=== PATIENT | male | born 1965 | race Caucasian/White ===

== ENCOUNTER 2016-08-18 08:18 | Emergency (ER) | payer OTHER, MEDICAID ==
[2016-08-18 08:30] VITALS: TEMP 98.2
--- NOTE | 2016-08-18 08:51 | EDPHY ---
H & P Stated Complaint: Suprapubic cath replacment Time Seen by Provider: 08/18/16 08:46 HPI/ROS: CHIEF COMPLAINT: Suprapubic catheter replacement. HISTORY OF PRESENT ILLNESS: The patient is a 51-year-old male with a history of quadriplegia who [facility]rapubic [facility]. He has no other complaints at this time. No urinary symptoms or fever. REVIEW OF SYSTEMS: A 10 point review of systems was performed and is negative with the exception of the elements mentioned in the history of present illness. Source: Patient Exam Limitations: No limitations - Personal History Current Tetanus/Diphtheria Vaccine: Yes Current Tetanus Diphtheria and Acellular Pertussis (TDAP): Yes Tetanus Vaccine Date: unknown date - Medical/Surgical History Hx Asthma: No Hx Chronic Respiratory Disease: No Hx Diabetes: No Hx Cardiac Disease: No Hx Renal Disease: No Hx Cirrhosis: No Hx Alcoholism: No Hx HIV/AIDS: No Hx Splenectomy or Spleen Trauma: No Other PMH: Quadriplegia. Suprapubic catheter - Social History Smoking Status: Never smoked Alcohol Use: None Additional [place] History[place]. - Physical Exam Exam: General Appearance: Alert, no acute distress. Focused physical examination performed. Triage BP 144/103. Respiratory: Lungs are clear to auscultation anteriorly; no wheezes, rales, or rhonchi. Cardiovascular: Regular rate and rhythm; no murmur, rub, or gallop. Gastrointestinal: Abdomen is soft and nontender, no masses or organomegaly, bowel sounds normal. Catheter site without purulent drainage or erythema. Catheter is draining. Skin: Warm and dry, no rashes, normal color. Extremities: No lower extremity edema, no calf tenderness or swelling. Contracture of all 4 extremities. Neurological: Alert. . Constitutional: Initial Vital Signs Temperature (C) 36.8 C 08/18/16 08:24 Heart Rate 85 08/18/16 08:24 Respiratory Rate 16 08/18/16 08:24 Blood Pressure 144/103 H 08/18/16 08:24 O2 Sat (%) 95 08/18/16 08:24 O2 Delivery Mode Room Air Allergies/Adverse Reactions: No Known Allergies Allergy (Unverified 04/09/12 14:36) Home Medications: Medication Instructions Recorded Baclofen [Baclofen 20 mg (RX)] 20 mg PO TID 01/02/12 Docusate Sodium [Colace 100 MG 100 mg PO BID 01/02/12 (OTC)] Famotidine [Pepcid 20 MG (OTC)] 20 mg PO BID 01/02/12 Metoprolol Tartrate [Lopressor 25 25 mg PO BID 01/02/12 mg (RX)] OLANZapine DISINTEGR [ZyPREXA 5 mg PO HS 01/02/12 ZYDIS 5 mg (RX)] Oxybutynin Chloride [Ditropan 5mg 5 mg PO BID 01/02/12 (RX)] Simvastatin [Zocor 20 mg (RX)] 20 mg PO DAILY18 01/02/12 Thiamine HCl [Vitamin B-1 100mg 100 mg PO DAILY8 01/02/12 (OTC)] Venlafaxine Xr [Effexor Xr 37.5MG 37.5 mg PO BID 01/02/12 (RX)] Diltiazem Cd [Cardizem ER 120 MG 120 mg PO DAILY 04/09/12 (RX)] Multivitamins [Multivitamin (OTC)] 1 each PO DAILY 04/09/12 Pharmacy Completed 04/09/1204/09/12 Reconciled 04/09/12 Reconciled 04/09/12 Warfarin Sodium [Coumadin 5MG (RX)] 5 mg PO TU 04/09/12 Warfarin Sodium [Coumadin 7.5MG 7.5 mg PO SUMOWETHFRSA 04/09/12 (RX)] Medical Decision Making ED Course/Re-evaluation: 51-year-old quadriplegic male presents from [facility] to have his suprapubic catheter replaced. He has no other medical complaints. I do not suspect infection. The nurse has replaced the catheter and he is safe for discharge. EMS has been notified. Departure - Departure Disposition: Home, Routine, Self-Care Clinical Impression: Encounter for suprapubic catheter care Condition: Good Instructions: How to Care for Your Suprapubic Catheter (ED) Additional Instructions: Return for any serious worsening of condition. Referrals: Martín Mata DO [Doctor of Osteopathy] - Follow Up Only If Needed (On-call primary care provider. ) Report Scribed for: Shadia Mcnamara Report Scribed by: Ricardo Butler Date of Report: 08/18/16 Time of Report: 08:50 Physician Review and Approval Statement: 08/18/16 09:00 Portions of this note were transcribed by the medical coding specialist. I, Dr. Shadia Mcnamara, personally performed the history, physical exam, and medical decision- making; and confirmed the accuracy of the information in the transcribed note.
[2016-08-18 10:12] VITALS: BP 136/102; PULSE 78; RESP 18; O2SAT 96
== END 2016-08-18 10:09 | disposition home or self-care (01) ==
LOC: EDUNIT#
PROC: 0T9B70Z Drainage of Bladder with Drainage Device, Via Natural or Artificial Opening (ICD-10-PCS; principal; 2016-08-18)
DX: Z46.6 Encounter for fitting and adjustment of urinary device (principal); Z79.01 Long term (current) use of anticoagulants

== ENCOUNTER 2017-06-06 09:09 | Day surgery (SDC) | payer OTHER, MEDICAID ==
[2017-06-06] MEDS ORDERED: LR 1,000 ML IV ONE (09:42)
[2017-06-06] MEDS ORDERED: LIDOCAINE 1% 2 ML INJ ID PRN (09:42)
[2017-06-06 10:33] LABS: PLATELET COUNT 257 10^3/uL (150-400)
--- NOTE | 2017-06-06 10:44 | PDANEPAE ---
ANE History of Present Illness melena ANE Past Medical History - Cardiovascular History Hx Hypertension: Yes Hx Arrhythmias: No Hx Chest Pain: No Hx Coronary Artery / Peripheral Vascular Disease: No Hx CHF / Valvular Disease: No Hx Palpitations: No - Pulmonary History Hx COPD: No Hx Asthma/Reactive Airway Disease: No Hx Recent Upper Respiratory Infection: No Hx Oxygen in Use at Home: No Hx Sleep Apnea: No Sleep Apnea Screening Result - Last Documented: Positive - Neurologic History Hx Cerebrovascular Accident: Yes Hx Seizures: No Hx Dementia: No Neurologic History Comment: deficit on right hand - Endocrine History Hx Diabetes: No - Renal History Hx Renal Disorders: No - Liver History Hx Hepatic Disorders: No - Neurological & Psychiatric Hx Hx Neurological and Psychiatric Disorders: Yes Neurological / Psychiatric History Comment: cerebal palsey, on zyprexa - Cancer History Hx Cancer: No - Congenital Disorder History Hx Congenital Disorders: No - GI History Hx Gastrointestinal Disorders: Yes Gastrointestinal History Comment: melena,IBS,gerd - Other Health History Other Health History: skin has wound left thigh. front teeth missing - Chronic Pain History Chronic Pain: No - Surgical History Prior Surgeries: none ANE Review of Systems Review of Systems: - Exercise capacity METS (RN): 1 METS ANE Patient History - Allergies Allergies/Adverse Reactions: No Known Allergies Allergy (Unverified 04/09/12 14:36) - Home Medications Home Medications: Baclofen [Baclofen 20 mg (RX)] 20 mg PO TID 01/02/12 [Last Taken 06/05/17 21:00] Metoprolol Tartrate [Lopressor 25 mg (RX)] 25 mg PO BID 01/02/12 [Last Taken 10/15 21:00] OLANZapine DISINTEGR [ZyPREXA ZYDIS 5 mg (RX)] 5 mg PO HS 01/02/12 [Last Taken 06/05/17 21:00] Oxybutynin Chloride [Ditropan 5mg (RX)] 5 mg PO BID 01/02/12 [Last Taken ] Venlafaxine Xr [Effexor Xr 37.5MG (RX)] 37.5 mg PO BID 01/02/12 [Last Taken 08/15] Multivitamins [Multivitamin (OTC)] 1 each PO DAILY 04/09/12 [Last Taken 06/05/17 ] Pharmacy Completed 04/09/1204/09/12 [Last Taken Unknown] Reconciled 04/09/12 [Last Taken Unknown] Reconciled 04/09/12 [Last Taken Unknown] Atorvastatin Calcium 20 mg 06/06/17 [Last Taken 06/05/17 21:00] FOLIC ACID 900 mg 06/06/17 [Last Taken 06/05/17] Protonix 40mg (*) 06/06/17 [Last Taken 06/05/17 16:00] Senna-Docusate Sodium Tablet 06/06/17 [Last Taken 06/05/17] - NPO status NPO Since - Liquids (Date): 06/05/17 NPO Since - Liquids (Time): 23:59 NPO Since - Solids (Date): 06/05/17 NPO Since - Solids (Time): 17:00 - Smoking Hx Smoking Status: Never smoked - Family Anes Hx Family Hx Anesthesia Complications: unknown ANE Labs/Vital Signs - Labs Result Diagrams: 06/06/17 10:12 06/06/17 10:12 - Vital Signs Blood Pressure: 108/79 Heart Rate: 85 Respiratory Rate: 20 O2 Sat (%): 94 Height: 165.1 cm Weight: 79.833 kg ANE Physical Exam - Airway Neck exam: decreased ROM Mallampati Score: Class 2 Mouth exam: poor dentition - Pulmonary Pulmonary: no respiratory distress - Cardiovascular Cardiovascular: regular rate and rhythym - ASA Status ASA Status: III ANE Anesthesia Plan Total IV Anesthesia: Yes
[2017-06-06] MEDS ORDERED: PROPOFOL 200 MG/20 ML VIAL ONE (10:47)
--- NOTE | 2017-06-06 10:49 | PDGENHP ---
History & Physical Chief Complaint: melena History of Present Illness: intermittnt melena on anticoagulation Pertinent Past, Social, Family History: FHX - no colon cance or interstinal cancers. no alcohol no tobacco. lives at SNF. hx a fib, hx anticoatgulation, CP Relevant Physical Exam: a+ox3. CTA. S1S2. +BS, soft mild tenderness no r/g Cardiorespiratory Assessment: class 3
[2017-06-06] MEDS ORDERED: NALOXONE HCL 0.4 MG/ML INJ IVP PRN (10:59)
--- NOTE | 2017-06-06 11:17 | POSTANESTH ---
Post Anesthetic Evaluation Cardiovascular Status: Normal, Stable Respiratory Status: Normal, Stable Level of Consciousness/Mental Status: Can Participate in Eval Pain Control: Adequate, Prn Tx Ordered Nausea/Vomiting Control: Adequate, Prn Tx Ordered Complications Possibly Related to Anesthesia: None Noted
--- NOTE | 2017-06-06 11:36 | GIREPORT ---
[facility] Surgical Services - Endoscopy Department Patient Name: Rodrigo Tsai Procedure Date: 06/06/2017 10:32 AM Patient Type: Outpatient Attending MD/ ER Physician: Lavern Leslie Procedure: Upper GI endoscopy Indications: Melena Providers: Brendan Cuadra MD Referring MD: Krysta Farris, Julián Roman MD Medicines: Total IV Anesthesia (TIVA) Complications: No immediate complications. Estimated blood loss: Minimal. Description of Procedure: After obtaining informed consent, the endoscope was passed under direct vision. Throughout the procedure, the patient's blood pressure, pulse, and oxygen saturations were monitored continuously. The Endoscope was intro duced through the mouth, and advanced to the third part of duodenum. The uppe r GI endoscopy was accomplished without difficulty. The patient tolerated th e procedure well. Findings: The examined esophagus was normal. A single 4 mm semi-sessile polyp with no bleeding and no stigmata of re cent bleeding was found on the greater curvature of the stomach. The polyp w as removed with a piecemeal technique using a cold biopsy forceps. Resecti on and retrieval were complete. Estimated blood loss was minimal. Scattered mild inflammation characterized by erythema and granularity w as found in the gastric body and in the gastric antrum. Biopsies were take n with a cold forceps for histology. Estimated blood loss was minimal. The examined duodenum was normal. The exam was otherwise without abnormality. Estimated Blood Loss: Estimated blood loss was minimal. Post Op Diagnosis: - Normal esophagus. - A single gastric polyp. Resected and retrieved. - Gastritis. Biopsied. - Normal examined duodenum. - The examination was otherwise normal. Recommendation: - Await pathology results. - My office will call with the pathology result with 5-7 days. If you h ave not heard from my office by -14, do not assume the pathology is cristobal l, please call [phone] to get the pathology reults. - Use Protonix (pantoprazole) 40 mg PO daily. - Resume Xarelto (rivaroxaban) at prior dose in 2 days. Refer to [facility] physician for further adjustment of therapy. - If he has recurent melena he may pancho a colonoscopy as right sided col on lesions can present with melena. If no more melena, he likely had an UG I source that has healed. - Discharge patient to a long-term (via cart). - Return to primary care physician as previously scheduled. - Thank you for allowing me to help in your patient's care. Do not hesi valdes to call with any questions. Attending Participation: I personally performed the entire procedure. Venecia Cardona M.D Brendan Cuadra MD 06/06/2017 11:36:31 AM This report has been signed electronicallyMathew MD Venecia Number of Addenda: 0 Note Initiated On: 06/06/2017 10:32 AM [email or web address]
[2017-06-06 12:12] VITALS: PULSE 82; RESP 12; TEMP 95.7
[2017-06-06 12:14] VITALS: BP 109/54; O2SAT 96
== END 2017-06-06 12:45 ==
LOC: FSGY 09:09
PROVIDERS: ATTEND Internal Medicine Gastroenterology
PROC: 0DB68ZX Excision of Stomach, Via Natural or Artificial Opening Endoscopic, Diagnostic (ICD-10-PCS; principal; 2017-06-06 10:30)
DX: K29.50 Unspecified chronic gastritis without bleeding (principal)
CPT/HCPCS: J2704